=== PATIENT | female | born 1940 | race Caucasian/White ===

== ENCOUNTER → 2021-06-29 | Outpatient (CLI) | payer MEDICARE, OTHER ==
--- NOTE | 2021-06-29 14:54 | Diagnostic Imaging Report ---
PROCEDURE: Pelvic comp/transvaginal sonogram. TECHNIQUE: Complete transabdominal and transvaginal pelvic ultrasound was performed. In addition, limited pelvic Doppler was performed. INDICATION: Postmenopausal with abnormal vaginal odor. FINDINGS: The uterus is anteverted measuring 5.0 x 2.7 x 4.7 cm. There is some myometrial heterogeneity but no discrete myometrial mass is detected. The endometrium is 4 mm in thickness. There is a small amount of fluid in the endometrial canal. The ovaries are not visualized and reportedly have been surgically removed. No adnexal mass or free fluid is detected. IMPRESSION: Small amount of fluid in the endometrial canal and surgically absent ovaries. The study is otherwise unremarkable. Dictated by: Dictated on workstation # [id number]
== END ==
LOC: RAD 12:58
PROVIDERS: ATTEND Obstetrics & Gynecology
DX: N89.8 Other specified noninflammatory disorders of vagina (principal); Z90.722 Acquired absence of ovaries, bilateral; Z78.0 Asymptomatic menopausal state
CPT/HCPCS: 76830; 76856